=== PATIENT | female | born 1960 | race Hispanic/Latino ===

== ENCOUNTER → 2017-11-12 | Outpatient (CLI) | payer MEDICAID ==
[~2017-11-12] MED LIST: REGADENOSON 0.4 MG/5 ML PF SYG IVP ONE; REGADENOSON 0.4 MG/5 ML PF SYG IVP SCH
== END | disposition home or self-care (01) ==
LOC: SHCH 11-11 08:15
PROVIDERS: ATTEND Internal Medicine Cardiovascular Disease
DX: R07.9 Chest pain, unspecified (principal)
CPT/HCPCS: 78452; 93017; 96374; A9500 ×2; J2785

== ENCOUNTER → 2022-02-16 | Outpatient (CLI) | payer MEDICAID | END | disposition home or self-care (01) | LOC: SHCH 13:46 | PROVIDERS: ATTEND Internal Medicine Cardiovascular Disease | DX: I08.0 Rheumatic disorders of both mitral and aortic valves (principal); I48.0 Paroxysmal atrial fibrillation; E78.5 Hyperlipidemia, unspecified | CPT/HCPCS: 93306 ==

== ENCOUNTER 2024-09-08 05:51 | Observation (INO) | payer MEDICAID ==
[2024-09-01 10:28] LABS: CREATININE 0.8 mg/dL (0.5-1.0); POTASSIUM 3.8 mmol/L (3.5-5.1)
--- NOTE | 2024-09-01 10:35 | EKG ---
[facility] Test Date: 2024-09-01 Test Time: 11:06:41 Pat Name: ANASTACIO SANTIAGO Department: [facility] Room: Gender: F Loan Manager: [id number] : 1960 Requested By: MARIEL KENDRICK Order Number: [id number] Reading MD: Tomi Cano Measurements Intervals [place] Rate: 60 P: 40 ID: [id number] QRS: 13 QRSD: 81 T: 40 QT: 439 QTc: 438 Interpretive Statements Sinus rhythm No previous ECG available for comparison Electronically Signed On 09-01-2024 13:44:41 ASSOCIATE DESIGNER by Tomi Cano Please click the below link to view image of tracing.
[2024-09-01 10:46] VITALS: BP 168/66; PULSE 67; RESP 18; TEMP 97.6
[2024-09-01 10:50] LABS: BASOPHILS # (AUTO) 0.02 K/uL (0.00-0.20); BASOPHILS % (AUTO) 0.4 % (0.0-5.0); EOSINOPHILS # (AUTO) 0.06 K/uL (0.00-0.70); EOSINOPHILS % (AUTO) 1.2 % (0.0-8.0); HEMATOCRIT 41.1 % (36-48); LYMPHOCYTES # (AUTO) 1.1 K/uL (1.0-4.8); LYMPHOCYTES % (AUTO) 22.7 % (21.0-51.0); MEAN CORPUSCULAR HEMOGLOBIN 27.1 pg (27.0-33.0); MEAN CORPUSCULAR HGB CONC 30.2 g/dL (32.0-36.0); MEAN CORPUSCULAR VOLUME 89.7 fL (79-99); MONOCYTES # (AUTO) 0.4 K/uL (0.1-1.0); MONOCYTES % (AUTO) 8.3 % (3.0-13.0); NEUTROPHILS # (AUTO) 3.2 K/uL (1.8-7.7); NEUTROPHILS % (AUTO) 67.4 % (40.0-77.0); PLATELET COUNT (AUTO) 256 K/uL (130-400); RED BLOOD CELL COUNT(AUTO) 4.58 MIL/uL (4.00-5.50); RED CELL DISTRIBUTION WIDTH 15.4 % (11.0-15.5); WHITE BLOOD COUNT (AUTO) 4.8 K/uL (4.8-10.8)
[2024-09-01 12:14] LABS: INR 1.19 (0.85-1.15); PARTIAL THROMBOPLASTIN TIME 38.3 SEC (26.3-35.5); PROTHROMBIN TIME 12.7 SEC (9.6-11.6)
[2024-09-08] VITALS (24 sets, daily range): BP systolic 144–180; BP diastolic 64–95; PULSE 53–69; RESP 10–20; TEMP 96.4–98.6; O2SAT 97
[~2024-09-08] VITALS: Ht 154.9 cm; Wt 131.1 kg
[~2024-09-08 05:51] MED LIST changes: +AMIO200T68 PO; +ATOR40TA71 PO; +FURO20TA4 PO; +LOSA50TA64 PO; +MEMA5TAB16 PO; +METO-391 PO; +POTA-183 PO; -REGADENOSON 0.4 MG/5 ML PF SYG IVP ONE; -REGADENOSON 0.4 MG/5 ML PF SYG IVP SCH; +RIVA20TA PO; +SEMA1PEN3 SQ
[2024-09-08] MEDS: 0.9%NACL 1000ML 1,000 ML IV ONE (06:44)
[2024-09-08] MEDS ORDERED: phenylEPHRINE HCL 10 MG/ML 1ML VIAL IV ONE (06:50)
[2024-09-08] MEDS ORDERED: MIDAZOLAM HCL 1 MG/ML 2ML VIAL ONE (06:50)
[2024-09-08] MEDS ORDERED: rocuRONium bROMide 10MG/1ML 5ML VL ONE (06:51)
[2024-09-08] MEDS ORDERED: GLYCOPYRROLATE 0.2 MG/ML 5 ML VIAL ONE (06:51)
[2024-09-08] MEDS ORDERED: proPOFol 10 MG/ML 20ML VIAL IV ONE (06:51)
[2024-09-08] MEDS ORDERED: ondanSETRON 4MG INJ ONE (06:51)
[2024-09-08] MEDS ORDERED: NEOSTIGMINE METHYLSULFATE 1MG/ML IV ONE (06:51)
[2024-09-08] MEDS ORDERED: SUCCINYLCHOLINE CHLORIDE 20 MG/ML 10 ML VIAL ONE (06:51)
[2024-09-08] MEDS ORDERED: FENTanyl CITRate PF 50 MCG/1 ML 2ML VIAL ONE ×2 (06:52)
[2024-09-08] MEDS ORDERED: LIDOCAINE PF 100MG/5ML (2%) SYRINGE 5ML ONE (06:53)
[2024-09-08] MEDS ORDERED: LIDOCAINE HCL 1% MDV 50ML VIAL ONE (07:51)
[2024-09-08] MEDS ORDERED: HEParin 10,000 UNIT/10ML (1,000 UNIT/ML) VIAL ONE ×3 (07:51→11:31)
[2024-09-08] MEDS ORDERED: HEParin-NS 1,000 UNIT/500 ML 1,500 ML IV ONE (07:52)
[2024-09-08] MEDS ORDERED: PROTamine SULFate 10 MG/ML 25ML VIAL IV ONE (12:05)
[2024-09-08] MEDS ORDERED: furoSEMIDE 40MG VIAL ONE (12:19)
[2024-09-08] MEDS: SUCRALFATE 1 GM/10 ML PO ONE (14:26)
[2024-09-08] MEDS: PANTOPrazole 40 MG TAB DR PO ONE (14:26)
--- NOTE | 2024-09-08 15:45 | NUR ---
URINARY: EMPTIED 1,100 CC CLEAR YELLOW COLOR URINE FROM BABB CATHETER.
--- NOTE | 2024-09-08 17:12 | NUR ---
foster catheter: foster catheter removed after removing 10 cc of air, obtained 300cc clear yellow color urine.
[2024-09-08 18:24] LABS: MAGNESIUM 1.8 mg/dL (1.80-2.40); POTASSIUM 3.3 mmol/L (3.5-5.1)
[2024-09-08] MEDS ORDERED: PoTASSium chloRIDE 20MEQ/100ML 100 ML IV PRN (19:00)
[2024-09-08] MEDS: SUCRALFATE 1 GM/10 ML PO SCH (19:10)
--- NOTE | 2024-09-08 20:15 | NUR ---
report: report called to caitlyn oconnell rn.
[2024-09-08] MEDS: RIVAROXABAN 20 MG TABLET PO SCH (22:04)
[2024-09-08] MEDS: PoTASSium chloRIDE 20MEQ ER 20 MEQ ERTAB PO PRN (22:05)
[2024-09-08] MEDS: MEMANtine HCL 5 MG TABLET PO SCH (22:06)
[2024-09-08] MEDS: LoSARTan 50 MG TABLET PO SCH (22:06)
[2024-09-08] MEDS: MAGNESIUM 2GM PREMIX 50ML 50 ML IV PRN (22:07)
[2024-09-09 00:14] VITALS: BP 155/73; PULSE 82; RESP 18; TEMP 99
[2024-09-09 03:50] VITALS: BP 108/54; PULSE 83; RESP 19; TEMP 100.7
[2024-09-09 04:15] VITALS: TEMP 99.1
[2024-09-09 05:41] LABS: CREATININE 0.8 mg/dL (0.5-1.0); MAGNESIUM 1.9 mg/dL (1.80-2.40); POTASSIUM 3.7 mmol/L (3.5-5.1)
[2024-09-09 07:00] VITALS: BP 114/63; PULSE 84; RESP 18; TEMP 99
[2024-09-09 08:00] VITALS: O2SAT 97
--- NOTE | 2024-09-09 08:00 | NUR ---
pt requesting tylenol for general body weakness called Dr Ruiz orders given
[2024-09-09] MEDS: AMIOdarone 200 MG TABLET PO SCH (08:37)
[2024-09-09] MEDS: metOPROLol sucCINATE 50 MG TAB.SR.24H PO SCH (08:37)
[2024-09-09] MEDS: PoTASSium chloRIDE 10MEQ SR 10 MEQ/TAB TAB.SR.24H PO SCH (08:37)
[2024-09-09] MEDS: PANTOPrazole 40 MG TAB DR PO SCH (08:37)
[2024-09-09] MEDS: atorVAStatin 40 MG TABLET PO SCH (08:37)
[2024-09-09] MEDS: acetaMINOPHEN 325 MG TAB PO PRN (08:38)
[2024-09-09] MEDS: PoTASSium chl 10% ELIXIR 20MEQ 20 MEQ/15 ML UDCUP PO PRN (08:39)
[2024-09-09] MEDS ORDERED: PANT40TA55 PO (08:40)
[2024-09-09] MEDS ORDERED: SUCR1TAB28 PO (08:42)
== END 2024-09-09 11:15 | disposition home or self-care (01) ==
LOC: DAH 05:51 → DAHIP 05:52 → DAH 18:44 → 2AH 20:17
PROVIDERS: ADMIT Internal Medicine Cardiovascular Disease; ATTEND Internal Medicine Cardiovascular Disease
DX: I48.19 Other persistent atrial fibrillation (principal); I10 Essential (primary) hypertension; E78.5 Hyperlipidemia, unspecified; E11.9 Type 2 diabetes mellitus without complications; F03.90 Unspecified dementia, unspecified severity, without behavioral disturbance, psychotic disturbance, mood disturbance, and anxiety; G47.30 Sleep apnea, unspecified; E66.9 Obesity, unspecified; Z98.890 Other specified postprocedural states; Z79.899 Other long term (current) drug therapy; Z90.49 Acquired absence of other specified parts of digestive tract; Z96.653 Presence of artificial knee joint, bilateral; Z68.43 Body mass index [BMI] 50.0-59.9, adult
CPT/HCPCS: 80048 ×2; 85025; 85610; 85730; 36415 ×3; 93005; 93656; 93657; 96376; 80051; 83735 ×2; 85347 ×6; 82948 ×3; 96365; 96366; A4344 ×2; C1894 ×3; C1732 ×3; C1893; A4215 ×2; A4649 ×2; C1760 ×3; C1766; G0378 ×16; J3475 ×2; J3010 ×2; J0330; J7030; J2720; J3490 ×3; J2003; J1644 ×4; J2250; J2704; J2405; J2710; J1940; J2371; A4223 ×3; A4554; A4657; A4222; A4221; A4663; A4216; A4606